=== PATIENT | male | born 1980 | race Caucasian/White ===

== ENCOUNTER 2018-11-06 21:59 | Emergency (ER) | payer OTHER ==
--- NOTE | 2018-11-07 00:02 | ED ---
Psych HPI - General Chief Complaint: Psychiatric Symptoms Stated Complaint: Mental Health Time Seen by Provider: 11/06/18 22:11 Source: patient, family Mode of arrival: ambulatory - History of Present Illness Initial Comments: 38yo male with history of meth use, psychosis presenting with family for psychosis. Patient said treatment have been attempting to harm him for the past 2 years. He states that he does not know why. Patient denies any suicidal or homicidal ideation. Patient has rapid pressured speech. Patient states he is scared. Patient is keeping responsive. Alert and oriented to time place. Patient has no other complaints. Patient admits to meth use. Family states that he has been behaving like this on and off sentences use of meth. They state that meth use has increased. They state that he has had bouts of psychosis and has had previous interventions. Patient does not take any current medications. Remaining ROS (-). Patient picking skin on exam taking. - Related Data Home Medications Medication Instructions Recorded Confirmed No Known Home Medications 11/06/18 11/06/18 Allergies Allergy/AdvReac Type Severity Reaction Status Date / Time peanut [Peanut Butter] AdvReac MIGRAINES Verified 11/06/18 22:36 Review of Systems ROS Statement: Those systems with pertinent positive or pertinent negative responses have been documented in the HPI. ROS Other: All systems not noted in ROS Statement are negative. Past Medical History Past Medical History: No Reported History History of Any Multi-Drug Resistant Organisms: None Reported Past Surgical History: No Surgical Hx Reported Past Psychological History: No Psychological Hx Reported Smoking Status: Current every day smoker Past Alcohol Use History: None Reported Past Drug Use History: Marijuana, Methamphetamine General Exam - General Exam Comments Initial Comments: General: The patient is awake and alert, in no distress, and does not appear acutely ill. Eye: +3mm pupils are equal, round and reactive to light, extra-ocular movements are intact. No nystagmus. There is normal conjunctiva bilaterally. No signs of icterus. Ears, nose, mouth and throat: There are moist mucous membranes and no oral lesions. Neck: The neck is supple, there is no tenderness or JVD. Cardiovascular: There is a regular rate and rhythm. No murmur, rub or gallop is appreciated. Respiratory: Lungs are clear to auscultation, respirations are non-labored, breath sounds are equal. No wheezes, stridor, rales, or rhonchi. Gastrointestinal: Soft, non-distended, non-tender abdomen without masses or organomegaly noted. There is no rebound or guarding present. Musculoskeletal: Normal ROM, no tenderness. Strength 5/5. Sensation intact. Radial pulses equal bilaterally 2+. Neurological: A&O x 3. CN II-XII intact, There are no obvious motor or sensory deficits. Coordination appears grossly intact. Speech is normal. Skin: Skin is warm and dry. Areas of scabing noted all over arms. Psychiatric: Rapid speech, pressured speech, states demons want to hurt him Limitations: no limitations Course Vital Signs 11/06/18 11/07/18 11/07/18 22:05 04:00 06:42 Temperature 97.6 F 97.5 F L 97.5 F L Pulse Rate 80 72 72 Respiratory 20 18 18 Rate Blood Pressure 111/78 118/70 118/72 O2 Sat by Pulse 100 98 97 Oximetry Medical Decision Making - Medical Decision Making 38yo male presenting for psychosis, polysubstance abuse. Patient per family is addicted to methamphetamines and believes his use has increased, he is beginning to state demons are trying to hurt him and picking his skin which is behavior patient exemplified per family when he was heavily using meth in the past. [facility] but needed medical clearance. No focal neurological deficits. patient keenly responsive, paranoid, rapid speech speaking of demons, appears acutely psychotic. Labs unremarkable otherwise. Patient VS stable. He appears well. Patient medically cleared for EPS evaluation. Prior to final EPS disposition, I signed out case to Dr. Ramachandran who will resume care from 12:50PM on 11/06/18. - Lab Data Result diagrams: 11/07/18 03:42 11/07/18 03:42 Lab Results 11/07/18 11/07/18 11/07/18 Range/Units 03:42 03:42 03:42 WBC 7.4 (3.8-10.6) k/uL RBC 5.22 (4.30-5.90) m/uL Hgb 14.8 (13.0-17.5) gm/dL Hct 45.6 (39.0-53.0) % MCV 87.4 (80.0-100.0) fL MCH 28.4 (25.0-35.0) pg MCHC 32.5 (31.0-37.0) g/dL RDW 13.6 (11.5-15.5) % Plt Count 237 (150-450) k/uL Neutrophils % 48 % Lymphocytes % 36 % Monocytes % 8 % Eosinophils % 4 % Basophils % 1 % Neutrophils # 3.6 (1.3-7.7) k/uL Lymphocytes # 2.7 (1.0-4.8) k/uL Monocytes # 0.6 (0-1.0) k/uL Eosinophils # 0.3 (0-0.7) k/uL Basophils # 0.1 (0-0.2) k/uL Sodium 134 L (137-145) mmol/L Potassium 3.5 (3.5-5.1) mmol/L Chloride 103 (98-107) mmol/L Carbon Dioxide 25 (22-30) mmol/L Anion Gap 6 mmol/L BUN 9 (9-20) mg/dL Creatinine 0.68 (0.66-1.25) mg/dL Est GFR (CKD-EPI)AfAm >90 (>60 ml/min/1.73 sqM) Est GFR (CKD-EPI)NonAf >90 (>60 ml/min/1.73 sqM) Glucose 115 H (74-99) mg/dL Calcium 9.1 (8.4-10.2) mg/dL Total Bilirubin 1.1 (0.2-1.3) mg/dL AST 42 (17-59) U/L ALT 31 (21-72) U/L Alkaline Phosphatase 65 (38-126) U/L Total Protein 6.0 L (6.3-8.2) g/dL Albumin 3.9 (3.5-5.0) g/dL Urine Color Yellow Urine Appearance Clear (Clear) Urine pH 6.0 (5.0-8.0) Ur Specific [place] 1.005 (1.001-1.035) Urine Protein Negative (Negative) Urine Glucose (UA) Negative (Negative) Urine Ketones Negative (Negative) Urine Blood Negative (Negative) Urine Nitrite Negative (Negative) Urine Bilirubin Negative (Negative) Urine Urobilinogen <2.0 (<2.0) mg/dL Ur Leukocyte Esterase Negative (Negative) Urine Opiates Screen Not Detected (NotDetected) Ur Oxycodone Screen Not Detected (NotDetected) Urine Methadone Screen Not Detected (NotDetected) Ur Propoxyphene Screen Not Detected (NotDetected) Ur Barbiturates Screen Not Detected (NotDetected) U Tricyclic Antidepress Not Detected (NotDetected) Ur Phencyclidine Scrn Not Detected (NotDetected) Ur Amphetamines Screen Detected H (NotDetected) U Methamphetamines Scrn Detected H (NotDetected) U Benzodiazepines Scrn Not Detected (NotDetected) Urine Cocaine Screen Not Detected (NotDetected) U Marijuana (THC) Screen Detected H (NotDetected) Disposition Clinical Impression: Methamphetamine abuse, Psychosis Disposition: OTHER INSTITUTION NOT DEFINED Condition: Stable Is patient prescribed a controlled substance at d/c from ED?: No Referrals: None,Stated [Primary Care Provider] - 1-2 days Time of Disposition: 14:39 - Out of Hospital Transfer - Req. Specs Out of Hospital Transfer - Requested Specifics: Psychiatric Non-ICU
[2018-11-07 03:57] LABS: Appearance,Urine Clear (Clear); Basophils # (A) 0.1 k/uL (0-0.2); Basophils % (A) 1 %; Bilirubin,Urine Negative (Negative); Blood,Urine Negative (Negative); Color,Urine Yellow; Eosinophils # (A) 0.3 k/uL (0-0.7); Eosinophils % (A) 4 %; Glucose,Urine (UA) Negative (Negative); HCT 45.6 % (39.0-53.0); HGB 14.8 gm/dL (13.0-17.5); Ketones,Urine Negative (Negative); Leukocyte Esterase,Urine Negative (Negative); Lymphocytes # (A) 2.7 k/uL (1.0-4.8); Lymphocytes % (A) 36 %; MCH 28.4 pg (25.0-35.0); MCHC 32.5 g/dL (31.0-37.0); MCV 87.4 fL (80.0-100.0); Mean Platelet Volume 6.6; Monocytes # (A) 0.6 k/uL (0-1.0); Monocytes % (A) 8 %; Neutrophils # (A) 3.6 k/uL (1.3-7.7); Neutrophils % (A) 48 %; Nitrite,Urine Negative (Negative); Platelet Count 237 k/uL (150-450); Protein,Urine Negative (Negative); RBC 5.22 m/uL (4.30-5.90); RDW 13.6 % (11.5-15.5); Specific Gravity,Urine 1.005 (1.001-1.035); Urobilinogen,Urine <2.0 mg/dL (<2.0); WBC 7.4 k/uL (3.8-10.6)
[2018-11-07 04:04] LABS: African American GFR (CKD) >90 (>60 ml/min/1.73 sqM); Anion Gap 6 mmol/L; Blood Urea Nitrogen 9 mg/dL (9-20); Carbon Dioxide 25 mmol/L (22-30); Chloride 103 mmol/L (98-107); Glucose 115 mg/dL (74-99); Potassium 3.5 mmol/L (3.5-5.1); Sodium 134 mmol/L (137-145)
[2018-11-07 04:05] LABS: ALT 31 U/L (21-72); AST 42 U/L (17-59); Albumin 3.9 g/dL (3.5-5.0); Alkaline Phosphatase 65 U/L (38-126); Calcium 9.1 mg/dL (8.4-10.2); Total Bilirubin 1.1 mg/dL (0.2-1.3)
[2018-11-07 04:09] LABS: Amphetamine Screen,Urine Detected (NotDetected); Barbiturate Screen,Urine Not Detected (NotDetected); Benzodiazepines Screen,Urine Not Detected (NotDetected); Cocaine Screen,Urine Not Detected (NotDetected); Methadone Screen, Urine Not Detected (NotDetected); Opiate Screen,Urine Not Detected (NotDetected); Oxycodone Screen, Urine Not Detected (NotDetected); Phencyclidine Screen,Urine Not Detected (NotDetected); Tricyclic Antidepressant,Urine Not Detected (NotDetected); Urn Cannabinoid Scrn Detected (NotDetected)
[2018-11-07 04:32] VITALS: PULSE 72; RESP 18; TEMP 97.5
[2018-11-07 06:43] VITALS: BP 118/72
== END 2018-11-07 11:15 | disposition other institution (70) ==
LOC: EC 21:59
DX: F15.159 Other stimulant abuse with stimulant-induced psychotic disorder, unspecified (principal); F17.200 Nicotine dependence, unspecified, uncomplicated; Z91.010 Allergy to peanuts
CPT/HCPCS: 36415; 80053; 80306; 81003; 82075; 85025; 99285

== ENCOUNTER 2021-06-15 21:52 | Inpatient (IN) | payer OTHER ==
[2021-06-15] MEDS ORDERED: NICOTINE 21MG/24HR PATCH TRANSDERM STA (22:17)
--- NOTE | 2021-06-15 22:22 | ED ---
Psych HPI - General Chief Complaint: Psychiatric Symptoms Stated Complaint: Mental Health Time Seen by Provider: 06/15/21 22:17 Source: patient, RN notes reviewed, old records reviewed Mode of arrival: ambulatory Limitations: altered mental status - History of Present Illness Initial Comments: This is a 41 male to the ER for evaluation. Patient is having delusions and seeing things that aren't there. Patient has petition by her his family available 03 days a concern for his well-being. Patient was making homicidal and suicidal Statements to his family with still denying homicidal or suicidal statements here in the ER denies drugs or alcohol MD Complaint: suicidal ideation, feels depressed, other (Making statements) -: unknown Associated Psychiatric Symptoms: racing thoughts, delusions Quality: constant, getting worse Improves With: none Worsens With: none Context: significant life stressor Associated Symptoms: denies other symptoms, confusion Treatments Prior to Arrival: placed on mental health hold - Related Data Home Medications Medication Instructions Recorded Confirmed SUMAtriptan succinate 100 mg PO BID PRN 06/15/21 06/15/21 Allergies Allergy/AdvReac Type Severity Reaction Status Date / Time peanut [Peanut Butter] AdvReac MIGRAINES Verified 06/15/21 22:03 Review of Systems ROS Statement: Those systems with pertinent positive or pertinent negative responses have been documented in the HPI. ROS Other: All systems not noted in ROS Statement are negative. Past Medical History Past Medical History: No Reported History History of Any Multi-Drug Resistant Organisms: None Reported Past Surgical History: No Surgical Hx Reported Past Psychological History: PTSD, Schizophrenia Smoking Status: Current every day smoker Past Alcohol Use History: None Reported Past Drug Use History: Marijuana, Methamphetamine General Exam General appearance: alert, in no apparent distress Head exam: Present: atraumatic, normocephalic, normal inspection Eye exam: Present: normal appearance, PERRL, EOMI. Absent: scleral icterus, conjunctival injection, periorbital swelling ENT exam: Present: normal exam, mucous membranes moist Neck exam: Present: normal inspection. Absent: tenderness, meningismus, lymphadenopathy Respiratory exam: Present: normal lung sounds bilaterally. Absent: respiratory distress, wheezes, rales, rhonchi, stridor Cardiovascular Exam: Present: regular rate, normal rhythm, normal heart sounds. Absent: systolic murmur, diastolic murmur, rubs, gallop, clicks GI/Abdominal exam: Present: soft, normal bowel sounds. Absent: distended, tenderness, guarding, rebound, rigid Extremities exam: Present: normal inspection, full ROM, normal capillary refill. Absent: tenderness, pedal edema, joint swelling, calf tenderness Back exam: Present: normal inspection Neurological exam: Present: alert, oriented X3, CN II-XII intact Psychiatric exam: Present: normal affect, normal mood Skin exam: Present: warm, dry, intact, normal color. Absent: rash Course Vital Signs 06/15/21 21:56 Temperature 98 F Pulse Rate 104 H Respiratory 18 Rate Blood Pressure 132/94 O2 Sat by Pulse 98 Oximetry - Reevaluation(s) Reevaluation #1: 06/16/21 02:52 Medical record is reviewed Reevaluation #2: 06/16/21 02:52 Patient seen and evaluated by psychiatry Medical Decision Making - Medical Decision Making 41 male DF for psychiatric evaluation. Patient be admitted for psychiatric evaluation and treatment - Lab Data Lab Results 06/16/21 Range/Units 00:33 Urine Opiates Screen Not Detected (NotDetected) Ur Oxycodone Screen Not Detected (NotDetected) Urine Methadone Screen Not Detected (NotDetected) Ur Propoxyphene Screen Not Detected (NotDetected) Ur Barbiturates Screen Not Detected (NotDetected) U Tricyclic Antidepress Not Detected (NotDetected) Ur Phencyclidine Scrn Not Detected (NotDetected) Ur Amphetamines Screen Not Detected (NotDetected) U Methamphetamines Scrn Not Detected (NotDetected) U Benzodiazepines Scrn Not Detected (NotDetected) Urine Cocaine Screen Not Detected (NotDetected) U Marijuana (THC) Screen Not Detected (NotDetected) Disposition Clinical Impression: Psychosis, Acute psychosis, Delusional disorder Disposition: TRANSFER TO PSYCH HOSP/UNIT Condition: Fair Is patient prescribed a controlled substance at d/c from ED?: No
[2021-06-16 01:06] LABS: Amphetamine Screen,Urine Not Detected (NotDetected); Barbiturate Screen,Urine Not Detected (NotDetected); Benzodiazepines Screen,Urine Not Detected (NotDetected); Cocaine Screen,Urine Not Detected (NotDetected); Methadone Screen, Urine Not Detected (NotDetected); Opiate Screen,Urine Not Detected (NotDetected); Oxycodone Screen, Urine Not Detected (NotDetected); Phencyclidine Screen,Urine Not Detected (NotDetected); Tricyclic Antidepressant,Urine Not Detected (NotDetected); Urn Cannabinoid Scrn Not Detected (NotDetected)
[2021-06-16] MEDS ORDERED: HALOPERIDOL LACTATE 5 MG/ML 1 ML VIAL IM PRN (02:00)
[2021-06-16] MEDS ORDERED: ACETAMINOPHEN TAB 325 MG TAB PO PRN (04:00)
[2021-06-16] MEDS ORDERED: MAG HYDROX/AL HYDROX/SIMETH 30 ML CUP PO PRN (04:00)
[2021-06-16] MEDS ORDERED: LORazepam 1 MG TAB PO PRN (04:00)
[2021-06-16] MEDS: NICOTINE 14MG/24HR PATCH TRANSDERM SCH (08:52)
[2021-06-16] MEDS ORDERED: MAGNESIUM HYDROXIDE 2,400 MG/10 ML CUP PO PRN (09:00)
[2021-06-16] MEDS ORDERED: ZIPRASIDONE 20 MG VIAL IM PRN (14:24)
--- NOTE | 2021-06-16 14:25 | P.HP ---
Psychiatric H&P - . H&P Date: 06/16/21 History & Physical: Allergies Allergy/AdvReac Type Severity Reaction Status Date / Time peanut Peanut Butter AdvReac MIGRAINES Verified 06/15/21 22:03 Vital Signs Temp 97.3 F L 06/16/21 03:18 Pulse 85 06/16/21 03:18 Resp 18 06/16/21 03:18 BP 131/89 06/16/21 03:18 Pulse Ox 100 06/16/21 03:18 Intake & Output 06/15/21 06/16/21 06/16/21 18:59 06:59 18:59 Weight 68.039 kg Laboratory Last Values Urine Opiates Screen Not Detected (NotDetected) 06/16/21 00:33 Ur Oxycodone Screen Not Detected (NotDetected) 06/16/21 00:33 Urine Methadone Screen Not Detected (NotDetected) 06/16/21 00:33 Ur Propoxyphene Screen Not Detected (NotDetected) 06/16/21 00:33 Ur Barbiturates Screen Not Detected (NotDetected) 06/16/21 00:33 U Tricyclic Antidepress Not Detected (NotDetected) 06/16/21 00:33 Ur Phencyclidine Scrn Not Detected (NotDetected) 06/16/21 00:33 Ur Amphetamines Screen Not Detected (NotDetected) 06/16/21 00:33 U Methamphetamines Scrn Not Detected (NotDetected) 06/16/21 00:33 U Benzodiazepines Scrn Not Detected (NotDetected) 06/16/21 00:33 Urine Cocaine Screen Not Detected (NotDetected) 06/16/21 00:33 U Marijuana (THC) Screen Not Detected (NotDetected) 06/16/21 00:33 Coronavirus (PCR) Not Detected (Not Detectd) 06/16/21 01:43 06/16/21 14:18 IDENTIFYING DATA: Patient is a 41-year-old male who currently lives with his mother in a house. He has no kids and is single. He is unemployed. HPI: Patient presented to the hospital yesterday on a petition by his mother. Patient apparently was making suicidal statements and was acting bizarre. Patient was admitted however did sign voluntary for the mental health unit. Christiano richmond was seen today laying in his bed and was directable and agreeable to streaked red in the office. He appeared to be disheveled and had poor hygiene and grooming. He was fairly irritable with the poem writer and explained that he was having a headache. He claims that he is on Imitrex and requested it however only got Tylenol. He claims that he does not know why he was picked up and brought to the hospital. He states that "the data processing specialist just fucking picked me up from my home". He states that he "lost Internet connection" and has not been able to work. He was fairly vague and guarded/evasive. He was also very concrete. He was somewhat irritable and argumentative with poem writer. 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 He states that he is not working anymore however was working for [employer]. He appeared to have poor reality testing. He was not endorsing any paranoia today. He states that his sleep has been poor appetite as been poor. Patient denies any suicidal or homicidal ideations intent or plan. At this time patient denies any auditory or visual hallucinations. Patient denies any flight of ideas racing thoughts and increased in goal directed behavior. Patient admits to using marijuana occasionally. He states that he smokes cigarettes. He claims that he used to use methamphetamine and alcohol however has stopped for almost 1 year. PAST PSYCHIATRIC HISTORY: Patient states that he has a history of psychosis. He claims that he is previously on haloperidol however claims that he had bad reactions to it. He states that he was last psychiatrically admitted in 2019 in [place]. Patient denies any psychiatric outpatient follow-up. Patient denies any history of suicide attempts in the past. PMH:denies ALLERGIES: as per EMR CHEMICAL DEPENDENCY HISTORY: as per HPI FAMILY PSYCHIATRIC/SUBSTANCE USE HISTORY: denies SOCIAL H[place]ORY: [place] states that he does not have any kids and is unmarried. He is currently unemployed. He lives with his mother in a house. He states that he completed high school and was home schooled. He states that he is currently on probation for "carrying a concealed weapon".. MENTAL STATUS EXAM: General Appearance: Patient appears to be thin, long unkempt hair and pollack. Disheveled appearance. stated age is alert, irritable vague and evasive. Patient appears to have poor hygiene and grooming. Behavior: Patient is seated without any agitated behavior. Irritable and argumentative at times. [place] and evasive. Speech: Patient's speech is fluent and nonpressured. [place]. Mood/Affect: Patient reports their mood is "fine", affect is congruent and constricted. Suicidality/Homicidality: Patient denies having any homicidal ideation intent or plan. Denies any suicidal ideations intent or plan Perceptions: Patient denies any visual hallucinations and denies any auditory hallucinations Though content/process: [place], poverty of content. Guarded/evasive. Delusional. Memory and concentration: AOX3, grossly intact for the purposes of this session. Can spell "WORLD" backwards Judgment and insight: poor STRENGTHS/WEAKNESSES: strength is that patient is resilient. Weakness is that patient has poor judgment and is impulsive INTELLECT: average IMPRESSIONS: Psychosis unspecified Cannabis use disorder Nicotine dependence History of methamphetamine and alcohol abuse PLAN: -Patient is admitted under voluntary status to MHU for stabilization of psychiatric symptoms and safety. Patient has signed adult voluntary form and medication consent and is placed in patient's chart. -Medications : Will start patient on Zyprexa 5 mg daily at bedtime for mood stabilization/psychosis/sleep. -ativan and geodon PRN for agitation/aggression -Patient was counselled on substance abuse and desired to cut back on use. Patient has very poor insight and judgment. -Patient was informed of the risks, benefits and side effects of the medication and patient verbally consented to taking the medications. Patient signed med consent form and was placed in chart. -Internal Medicine consult to perform medical evaluation and physical. -NRT - nicotine patch -SW on board for discharge planning. Encourage patient to participate in groups to work on coping skills. 06/16/21 14:25
[2021-06-16] MEDS: SUMAtriptan succinate 50 MG TAB PO PRN (14:28)
--- NOTE | 2021-06-16 16:51 | P.HPMEDMHU ---
History of Present Illness H&P Date: 06/16/21 Chief Complaint: suicidal 41-year-old male with history of migraines and chronic neck pain presenting to the mental health unit because of suicidal thoughts. He was petitioned by his mother. When I saw him he was having a headache. He received Tylenol and Imitrex for was an severe migraine. He also has some photophobia. Otherwise he denies recent illness, fevers, chills, cough, shortness of breath, nausea or vomiting. Review of Systems 12 point review of system was performed, negative except for what is stated in HPI Past Medical History Past Medical History: No Reported History History of Any Multi-Drug Resistant Organisms: None Reported Past Surgical History: No Surgical Hx Reported Past Psychological History: PTSD, Schizophrenia Smoking Status: Current every day smoker Past Alcohol Use History: None Reported Past Drug Use History: Marijuana, Methamphetamine Medications and Allergies Home Medications Medication Instructions Recorded Confirmed Type SUMAtriptan succinate 100 mg PO BID PRN 06/15/21 06/15/21 History Allergies Allergy/AdvReac Type Severity Reaction Status Date / Time peanut [Peanut Butter] AdvReac MIGRAINES Verified 06/15/21 22:03 Physical Exam Vitals: Vital Signs Temp Pulse Pulse Resp BP BP Pulse Ox 06/16/21 03:18 97.3 F L 85 18 131/89 100 06/15/21 21:56 98 F 104 H 18 132/94 98 Constitutional: No acute distress, conversant, pleasant Eyes:Anicteric sclerae, moist conjunctiva, no lid-lag, PERRLA, ENMT: Oropharynx clear, no erythema, exudates Neck: Supple, FROM, no masses, or JVD, No carotid bruits, No thyromegaly Lungs: Clear to auscultation, Clear to percussion, Normal respiratory effort, no accessory muscle use Cardiovascular: Heart regular in rate and rhythm, No murmurs, gallops, or rubs, No peripheral edema Abdominal: Soft, Nontender, no guarding, rebound or rigidity, Normoactive bowel sounds, No hepatomegaly, No splenomegaly, No palpable mass Skin: Normal temperature, tone, texture, turgor, no induration, No subcutaneous nodules, No rash, lesions, No ulcers Extremities: No digital cyanosis, No clubbing, Pedal pulses intact and symmetri chin, Radial pulses intact and symmetrical, No calf tenderness Psychiatric: Alert and oriented to person, place and time, appropriate affect, intact judgement Neuro: Muscles Strength 5/5 in all 4 extremities, Sensation to light touch grossly present throughout, Cranial nerves II-XII grossly intact, no focal sensory deficits Cranial Nerve Examination - Cranial Nerves Cranial Nerve I- Olfactory: Intact Cranial Nerve II- Optic: Intact Cranial Nerve III- Oculomotor: Intact Cranial Nerve IV- Trochlear: Intact Cranial Nerve V- Trigeminal: Intact Cranial Nerve - Abducens: Intact Cranial Nerve VII- Facial: Intact Cranial Nerve VIII- Auditory: Intact Cranial Nerve IX- Glossopharyngeal: Intact Cranial Nerve X- Vagus: Intact Cranial Nerve XI- Accessory: Intact Cranial Nerve XII- Hypoglossal: Intact Assessment and Plan Plan: Suicidal thoughts and ideation Psychosis Substance abuse Per psychiatry management Medical evaluation Check CBC, CMP, A1c, TSH, lipid profile Please call the [facility] with abnormal results or questions.
[2021-06-16] MEDS: OLANZapine 5 MG TAB PO SCH (20:49)
[2021-06-17 07:26] LABS: Basophils # (A) 0.1 k/uL (0-0.2); Basophils % (A) 1 %; Eosinophils # (A) 0.2 k/uL (0-0.7); Eosinophils % (A) 3 %; HCT 47.6 % (39.0-53.0); HGB 15.5 gm/dL (13.0-17.5); Lymphocytes # (A) 2.9 k/uL (1.0-4.8); Lymphocytes % (A) 34 %; MCH 31.3 pg (25.0-35.0); MCHC 32.6 g/dL (31.0-37.0); MCV 95.9 fL (80.0-100.0); Mean Platelet Volume 6.9; Monocytes # (A) 0.8 k/uL (0-1.0); Monocytes % (A) 10 %; Neutrophils # (A) 4.2 k/uL (1.3-7.7); Neutrophils % (A) 50 %; Platelet Count 256 k/uL (150-450); RBC 4.97 m/uL (4.30-5.90); RDW 12.9 % (11.5-15.5); WBC 8.3 k/uL (3.8-10.6)
[2021-06-17 07:53] LABS: ALT 32 U/L (4-49); AST 26 U/L (17-59); African American GFR (CKD) >90 (>60 ml/min/1.73 sqM); Albumin 4.1 g/dL (3.5-5.0); Alkaline Phosphatase 73 U/L (38-126); Anion Gap 5 mmol/L; Blood Urea Nitrogen 14 mg/dL (9-20); Carbon Dioxide 27 mmol/L (22-30); Chloride 106 mmol/L (98-107); Glucose 102 mg/dL (74-99); Non-African American GFR(CKD) >90 (>60 ml/min/1.73 sqM); Potassium 5.1 mmol/L (3.5-5.1); Sodium 138 mmol/L (137-145); Total Bilirubin 0.4 mg/dL (0.2-1.3); Total Protein 6.7 g/dL (6.3-8.2)
[2021-06-17] MEDS: NICOTINE 14MG/24HR PATCH TRANSDERM SCH (08:05)
--- NOTE | 2021-06-17 11:52 | P.PN ---
Progress Note - Text Progress Note Date: 06/17/21 Interval History: Patient was seen wandering the hallways and was directable and agreeable to sp salma with video games storywriter in the office. Patient appears to have mild improvement in his hygiene and grooming today. He appears to have improvement in his affect and eye contact is well. He continues to be somewhat guarded and concrete about what happened to bring him in to the hospital. He states that he has not spoken with his mother yet. He claims that he was trying to "beat hacker" on the Internet and does not know where this hackers from more irritated if it is a computer or not. He states that "it was stupid" and changes topics to something else that he wanted to talk about. He states that he used to work doing construction and remodeling and states that his brother took away his truck so he found it hard to get back to work. He claims that he will be trying to look for other work. He appears to be more appropriate today however does smile inappropriately at video games storywriter at times and appears to be bizarre. He states that he did go to one activity group yesterday will try to go to more groups today. He states that he was able to sleep fairly well last night. At this time patient denies any suicidal or homical ideations, intent or plan. Patient denies any auditory, visual hallucinations. Reality testing improving mildly today. Patient denies any side effects from the medications and has been compliant with meds. Mental Status Exam: General Appearance: Patient appears to be thin, long unkempt hair and pollack. Improving hygiene. stated age is alert, less irritable today. Continues to be vague. Behavior: Patient is seated without any agitated behavior. Less irritable tod ay. [place] and evasive, preferably mildly Speech: Patient's speech is fluent and nonpressured. [place]. Mood/Affect: Patient reports their mood is "ok", affect is congruent and constricted. Suicidality/Homicidality: Patient denies having any homicidal ideation intent or plan. Denies any suicidal ideations intent or plan Perceptions: Patient denies any visual hallucinations and denies any auditory hallucinations Though content/process: [place], more goal oriented. Guarded/evasive. Memory and concentration: AOX3, grossly intact for the purposes of this session Judgment and insight: poor, improving mildly Assessment Psychosis unspecified Cannabis use disorder Nicotine dependence History of methamphetamine and alcohol abuse Plan: -Patient continues to meet criteria for inpatient psychiatric admission for symptom stabilization and safety. Patient has signed adult voluntary form and medication consent and was placed in patient's chart. -Medications: Continue with Zyprexa 5 mg daily at bedtime for mood stabilization/psychosis/sleep. -When necessary Ativan and Geodon for agitation/aggression. -NRT - nicotine patch -SW on board for discharge planning. Encouraged the patient to participate in milieu. \\Likely discharge back home in 1-2 days.
[2021-06-17 15:07] LABS: Chol/HDL Ratio 3.14 Ratio; LDL Cholesterol,Calculated 116.4 mg/dL (0.0-131.0)
[2021-06-17] MEDS: OLANZapine 5 MG TAB PO SCH (20:21)
[2021-06-17] MEDS: CYCLOBENZAPRINE 5 MG TAB PO PRN (20:21)
[2021-06-18 06:56] VITALS: RESP 14
[2021-06-18] MEDS: NICOTINE 14MG/24HR PATCH TRANSDERM SCH (08:28)
[2021-06-18] MEDS: CYCLOBENZAPRINE 5 MG TAB PO PRN (08:29)
--- NOTE | 2021-06-18 13:57 | P.PN ---
Progress Note - Text Progress Note Date: 06/18/21 Interval History: Patient was seen taking part in group today and was directable to speak to deyanira flynn in the office. Patient appears to have mild improvement in his hygiene and grooming today. Patient appears to have an improvement in his affect once again today. His eye contact is improving. He did not mention any bizarre statements today. 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 He states that he did speak with his mother yesterday over the phone and he claims that she may want documentation about how he is doing. He states that he does feel anxious at times however has been doing well in groups and attending to participate as best as he can. He states that he is showering. He claims that he is eating fairly well. He claims that he slept fairly last night with the Zyprexa. At this time patient denies any suicidal or homical ideations, intent or plan. Patient denies any auditory, visual hallucinations. Reality testing improving mildly today. Patient denies any side effects from the medications and has been compliant with meds. Mental Status Exam: General Appearance: Patient appears to be thin, long unkempt hair and pollack. Improving hygiene. stated age is alert, more cooperative today. Behavior: Patient is seated without any agitated behavior. Less irritable today. [place], improving mildly Speech: Patient's speech is fluent and nonpressured. Mood/Affect: Patient reports their mood is "good", affect is congruent and constricted. Suicidality/Homicidality: Patient denies having any homicidal ideation intent or plan. Denies any suicidal ideations intent or plan Perceptions: Patient denies any visual hallucinations and denies any auditory hallucinations Though content/process: [place], more goal oriented. Not endorsing any delusions today. Memory and concentration: AOX3, grossly intact for the purposes of this session Judgment and insight: chronically poor, improving mildly Assessment Psychosis unspecified Cannabis use disorder Nicotine dependence History of methamphetamine and alcohol abuse Plan: -Patient continues to meet criteria for inpatient psychiatric admission for symptom stabilization and safety. Patient has signed adult voluntary form and medication consent and was placed in patient's chart. -Medications: Continue with Zyprexa 5 mg daily at bedtime for mood stabilization/psychosis/sleep. -When necessary Ativan and Geodon for agitation/aggression. -NRT - nicotine patch -SW on board for discharge planning. Encouraged the patient to participate in milieu. Likely discharge back home tomorrow.
[2021-06-18] MEDS: OLANZapine 5 MG TAB PO SCH (19:55)
[2021-06-18] MEDS: CYCLOBENZAPRINE 10 MG TAB PO PRN (19:55)
[2021-06-19 06:40] VITALS: BP 116/66; PULSE 59; TEMP 97.1
[2021-06-19] MEDS: NICOTINE 14MG/24HR PATCH TRANSDERM SCH (08:42)
[2021-06-19] MEDS: CYCLOBENZAPRINE 10 MG TAB PO PRN (08:44)
[2021-06-19] MEDS: SUMAtriptan succinate 50 MG TAB PO PRN (10:44)
--- NOTE | 2021-06-19 12:42 | P.DS ---
Providers Date of admission: 06/16/21 01:20 Expected date of discharge: 06/19/21 Attending physician: Wilfred Carbajal MD Consults: 06/16/21 01:31 Consult Physician Routine Consulting Provider: [facility] Consult Reason/Comments: h and p Do you want consulting provider notified?: Yes, Notify in am Primary care physician: Stated None - Discharge Diagnosis(es) (1) Unspecified psychosis Current Visit: Yes Status: Acute Priority: High (2) Cannabis use disorder, mild, abuse Current Visit: Yes Status: Acute Priority: Medium (3) Nicotine dependence Current Visit: Yes Status: Acute Priority: Low (4) History of methamphetamine abuse Current Visit: Yes Status: Acute Priority: Low (5) History of alcohol abuse Current Visit: Yes Status: Acute Priority: Low Hospital Course: Admission HPI: Admission note was completed by medical underwriter "Patient is a 41-year-old male who currently lives with his mother in a house. He has no kids and is single. He is unemployed. Patient presented to the hospital yesterday on a petition by his mother. Patient apparently was making suicidal statements and was acting bizarre. Patient was admitted however did sign voluntary for the mental health unit. Patient was seen today laying in his bed and was directable and agreeable to streaked red in the office. He appeared to be disheveled and had poor hygiene and grooming. He was fairly irritable with the medical underwriter and explained that he was having a headache. He claims that he is on Imitrex and requested it however only got Tylenol. He claims that he does not know why he was picked up and brought to the hospital. He states that "the geopolitics teacher just fucking picked me up from my home". He states that he "lost Internet connection" and has not been able to work. He was fairly vague and guarded/evasive. He was also very concrete. He was somewhat irritable and argumentative with medical underwriter. 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 He states that he is not working anymore however was working for [employer]. He appeared to have poor reality testing. He was not endorsing any paranoia today. He states that his sleep has been poor appetite as been poor. Patient denies any suicidal or homicidal ideations intent or plan. At this time patient denies any auditory or visual hallucinations. Patient denies any flight of ideas racing thoughts and increased in goal directed behavior. Patient admits to using marijuana occasionally. He states that he smokes cigarettes. He claims that he used to use methamphetamine and alcohol however has stopped for almost 1 year." Hospital course: Upon admission to the unit patient was directable and agreeable to commence treatment and signed adult voluntary form. Patient got along well with other patients on the unit and followed unit protocol. Patient was compliant with the medications and denied any side effects throughout hospital course. Patient was started on Zyprexa 5 mg daily at bedtime for mood stabilization/psychosis/sleep. Patient spoke of his stressors and engaged in therapy both group and individual. Patient was also seen by medical team for history and physical exam. Throughout the course of the hospitalization patient gradually improved with regards to mood, anxiety, sleep and returned back to their baseline level of functioning. On the day of discharge patient denied any suicidal or homicidal ideations intent or plan denied any auditory or visual hallucinations. Patient endorsed wanting to live for his health and to find a job. The patient denied any access to guns or weapons. Patient denied any paranoia and did not endorse any delusions. Patient does have a significant history of substance abuse and was counseled on abstaining from all substances including alcohol and marijuana. Patient was offered however declined inpatient substance-abuse rehab. Patient was also counseled on the medications and need for regular compliance and was encouraged to follow-up with their outpatient appointment for mental health and also for primary care. Prior to discharge a family meeting will be arranged by social work coordinator to answer any questions and ensure safety upon discharge. Mental status exam: General Appearance: Patient appears to have long hair and a pollack, stated age is alert, pleasant, and cooperative. Patient is in no acute distress and has improved hygiene and grooming Behavior: Patient is calmly seated without any agitated behavior. Speech: Patient's speech is fluent and nonpressured. Mood/Affect: Patient reports their mood is "better", affect is congruent and euthymic. Suicidality/Homicidality: Patient denies having any suicidal or homicidal ideation intent or plan. Perceptions: Patient denies any auditory or visual hallucinations. Though content/process: There is no evidence of any delusional thought content and thought process is linear and goal-directed. Memory and concentration: AOX3, grossly intact for the purposes of this session. Can spell "WORLD" backwards correctly. Judgment and insight: chronically poor, however has improved with guarded prognosis Impression: Psychosis unspecified Cannabis use disorder mild History of methamphetamine abuse History of alcohol use Nicotine dependence Plan: -Continue with discharge today as patient has improved and stabilized psychiatrically and is not currently an imminent threat to himself and/or others. Patient will remain at chronically elevated risk for harm to self and/or others due to his impulsivity and polysubstance abuse. -Continue medications: Zyprexa by mouth 5 mg daily at bedtime for mood stabilization/psychosis/sleep -Patient was counseled on the need for medication compliance and appropriate follow-up at mental health and also primary care for medical issues. Patient verbalized understanding and agreed. -Social work to arrange for and conduct family meeting to ensure safety upon discharge and answer any questions/concerns. Social work also to arrange for patients follow up appointments with [facility] for psychiatric care along with follow up with primary care provider. -Patient counseled on abstaining from recreational drugs and marijuana and alcohol. Was informed/educated on the adverse effects on their physical and mental health. Patient verbally agreed and understood. -Patient was instructed to return to the hospital or seek immediate medical care if their psychiatric or medical symptoms do worsen or reoccur. Allergies Allergy/AdvReac Type Severity Reaction Status Date / Time peanut [Peanut Butter] AdvReac MIGRAINES Verified 06/15/21 22:03 Laboratory Results WBC 8.3 k/uL (3.8-10.6) 06/17/21 06:57 RBC 4.97 m/uL (4.30-5.90) 06/17/21 06:57 Hgb 15.5 gm/dL (13.0-17.5) 06/17/21 06:57 Hct 47.6 % (39.0-53.0) 06/17/21 06:57 MCV 95.9 fL (80.0-100.0) 06/17/21 06:57 MCH 31.3 pg (25.0-35.0) 06/17/21 06:57 MCHC 32.6 g/dL (31.0-37.0) 06/17/21 06:57 RDW 12.9 % (11.5-15.5) 06/17/21 06:57 Plt Count 256 k/uL (150-450) 06/17/21 06:57 MPV 6.9 06/17/21 06:57 Neutrophils % 50 % 06/17/21 06:57 Lymphocytes % 34 % 06/17/21 06:57 Monocytes % 10 % 06/17/21 06:57 Eosinophils % 3 % 06/17/21 06:57 Basophils % 1 % 06/17/21 06:57 Neutrophils # 4.2 k/uL (1.3-7.7) 06/17/21 06:57 Lymphocytes # 2.9 k/uL (1.0-4.8) 06/17/21 06:57 Monocytes # 0.8 k/uL (0-1.0) 06/17/21 06:57 Eosinophils # 0.2 k/uL (0-0.7) 06/17/21 06:57 Basophils # 0.1 k/uL (0-0.2) 06/17/21 06:57 Sodium 138 mmol/L (137-145) 06/17/21 06:57 Potassium 5.1 mmol/L (3.5-5.1) 06/17/21 06:57 Chloride 106 mmol/L (98-107) 06/17/21 06:57 Carbon Dioxide 27 mmol/L (22-30) 06/17/21 06:57 Anion Gap 5 mmol/L 06/17/21 06:57 BUN 14 mg/dL (9-20) 06/17/21 06:57 Creatinine 1.02 mg/dL (0.66-1.25) 06/17/21 06:57 Est GFR (CKD-EPI)AfAm >90 (>60 ml/min/1.73 sqM) 06/17/21 06:57 Est GFR (CKD-EPI)NonAf >90 (>60 ml/min/1.73 sqM) 06/17/21 06:57 Glucose 102 mg/dL (74-99) H 06/17/21 06:[address] Glu mg/dL 136 06/17/21 06:57 Hemoglobin A1c 6.4 % (0.0-6.0) H 06/17/21 06:57 Calcium 9.0 mg/dL (8.4-10.2) 06/17/21 06:57 Total Bilirubin 0.4 mg/dL (0.2-1.3) 06/17/21 06:57 AST 26 U/L (17-59) 06/17/21 06:57 ALT 32 U/L (4-49) 06/17/21 06:57 Alkaline Phosphatase 73 U/L (38-126) 06/17/21 06:57 Total Protein 6.7 g/dL (6.3-8.2) 06/17/21 06:57 Albumin 4.1 g/dL (3.5-5.0) 06/17/21 06:57 Triglycerides 103.00 mg/dL (0.00-149.00) 06/17/21 06:57 Cholesterol 201.00 mg/dL (0.00-200.00) H 06/17/21 06:57 LDL Cholesterol, Calc 116.4 mg/dL (0.0-131.0) 06/17/21 06:57 VLDL Cholesterol, Calc 20.60 mg/dL (5.00-40.00) 06/17/21 06:57 HDL Cholesterol 64.00 mg/dL (40.00-60.00) H 06/17/21 06:57 Cholesterol/HDL Ratio 3.14 Ratio 06/17/21 06:57 TSH 1.520 mIU/L (0.465-4.680) 06/17/21 06:57 Urine Opiates Screen Not Detected (NotDetected) 06/16/21 00:33 Ur Oxycodone Screen Not Detected (NotDetected) 06/16/21 00:33 Urine Methadone Screen Not Detected (NotDetected) 06/16/21 00:33 Ur Propoxyphene Screen Not Detected (NotDetected) 06/16/21 00:33 Ur Barbiturates Screen Not Detected (NotDetected) 06/16/21 00:33 U Tricyclic Antidepress Not Detected (NotDetected) 06/16/21 00:33 Ur Phencyclidine Scrn Not Detected (NotDetected) 06/16/21 00:33 Ur Amphetamines Screen Not Detected (NotDetected) 06/16/21 00:33 U Methamphetamines Scrn Not Detected (NotDetected) 06/16/21 00:33 U Benzodiazepines Scrn Not Detected (NotDetected) 06/16/21 00:33 Urine Cocaine Screen Not Detected (NotDetected) 06/16/21 00:33 U Marijuana (THC) Screen Not Detected (NotDetected) 06/16/21 00:33 Coronavirus (PCR) Not Detected (Not Detectd) 06/16/21 01:43 Vital Signs Temp 97.1 F L 06/19/21 06:18 Pulse 59 L 06/19/21 06:18 Resp 14 06/19/21 06:18 BP 116/66 06/19/21 06:18 Pulse Ox 98 06/19/21 06:18 Patient Condition at Discharge: Stable Plan - Discharge Summary New Discharge Prescriptions: New OLANZapine [ZyPREXA] 5 mg PO HS 30 Days tab Nicotine 14Mg/24Hr Patch [Habitrol] 1 patch TRANSDERM DAILY 14 Days patch Continue SUMAtriptan succinate 100 mg PO BID PRN 30 Days tab PRN Reason: Migraine Headache Discharge Medication List Nicotine 14Mg/24Hr Patch [Habitrol] 1 patch TRANSDERM DAILY 14 Days patch 06/19/21 [Rx] OLANZapine [ZyPREXA] 5 mg PO HS 30 Days tab 06/19/21 [Rx] SUMAtriptan succinate 100 mg PO BID PRN 30 Days tab 06/19/21 [Rx] Follow up Appointment(s)/Referral(s): [facility] [Outside] - 06/26/21 11:30 am (with intake ) None,Stated [Primary Care Provider] - 1-2 days Patient Instructions/Handouts: How to Stop Smoking (DC), Psychotic Disorder (DC) Activity/Diet/Wound Care/Special Instructions: Activity and diet as tolerated. Avoid the use of street drugs and alcohol. Take all medications as prescribed. When you are in need of refills on your medications please contact your medical provider and/or outpatient psychiatrist to have this done. Please go to scheduled outpatient appointment for aftercare treatment. If symptoms return or become worse, call the crisis line at and/or go to the nearest emergency room for evaluation Discharge Disposition: HOME SELF-CARE
== END 2021-06-19 14:25 | disposition home or self-care (01) | DRG 885 ==
LOC: EC 21:52 → 3MHU 06-16 01:20
PROVIDERS: ADMIT Psychiatry & Neurology Psychiatry; ATTEND Psychiatry & Neurology Psychiatry
DX: F29 Unspecified psychosis not due to a substance or known physiological condition (principal); F12.10 Cannabis abuse, uncomplicated; F17.210 Nicotine dependence, cigarettes, uncomplicated; F20.9 Schizophrenia, unspecified; F43.10 Post-traumatic stress disorder, unspecified; Z65.3 Problems related to other legal circumstances; Z56.0 Unemployment, unspecified; Z71.51 Drug abuse counseling and surveillance of drug abuser; Z20.822 Contact with and (suspected) exposure to COVID-19; Z91.010 Allergy to peanuts; Z79.899 Other long term (current) drug therapy
CPT/HCPCS: 80053; 80061; 80306; 82075; 83036; 84443; 85025; 87635; 99285